=== PATIENT | female | born 1930 | race Caucasian/White ===

== ENCOUNTER 2018-06-07 18:09 | Inpatient (IN) | payer MEDICARE, BC ==
[~2018-06-07] VITALS: Ht 162.6 cm; Wt 59.0 kg
--- NOTE | ~2018-06-07 | PN ---
PATIENT:HYACINTH GUNDERSON MEDICAL RECORD: [id number] LOCATION:RohanOctaviaMADELINE August ADMISSION DATE: 06/07/18 PROGRESS NOTE DATE OF SERVICE: 06/10/2018 SUBJECTIVE: Ms. Gunderson is an 87-year-old female, who had been living with her son, but she had been frequently leaving the house, going down the street and when tried to redirect back to the house, the patient became physically agitated with her son and this time she was found by the police. On interview, the patient seems to be nervous and guarded. She certainly does not recognize me from yesterday at all. She thought she was in a [facility] and her only comments were that she needed to go home. OBJECTIVE: LATEST VITAL SIGNS: 98.4, 83, 18, 118/52, and 94%. ASSESSMENT: Unchanged. PLAN: The patient recently admitted. Social work will be talking to son about placement options, which [facility] care seems likely at this point considering the patient's wandering. We will continue to monitor for any side effects, risks, and benefits of recently started meds of BuSpar and Namenda. Case discussed with nursing, chart review and patient interview. TRANSINT:[id number] Voice Confirmation ID: [id number] DOCUMENT ID: [id number] RADHA RODRIGUES MD CC: [id number] DICTATION DATE: 06/10/18 1053 RECYCLING PROGRAM MANAGER: 06/10/18 1144 ADM IN [facility] [address] [place] [address]
--- NOTE | ~2018-06-07 | PN ---
PATIENT:HYACINTH GUNDERSON MEDICAL RECORD: [id number] LOCATION:MARIAJOSE Fern112 ADMISSION DATE: 06/07/18 PROGRESS NOTE DATE OF SERVICE: 06/12/2018 HISTORY OF PRESENT ILLNESS: Ms. Gunderson is an 87-year-old female who up until fairly recently by report was living by herself, but because of increasing confusion went to live with son. While there, had been wandering from her son's home and when redirected back to her son's home, she became agitated, aggressive and found by the police. She, after seeing a couple of patients last night, getting more agitated. The patient believed that a fellow patient had come here to have lunch with her and when this patient was not being allowed to leave, felt it was quite rude that her guest was not allowed to leave. Today on the interview, as per her baseline, she believes that she is ready to go and ready to go back home. Still believes she lives at home alone. She slept 8 hours last night, ate 100%, zero, and 75%. Her last bowel movement was on the 8th. Discussion with social services, the patient's son is looking at a list of group home facilities in order to place his mother as he is unable to provide the supervision as needed for this patient. OBJECTIVE: VITAL SIGNS: Temperature 98.8, heart rate 88, respiratory rate 18, blood pressure 131/68, and oxygen saturation 96%. ASSESSMENT: Unchanged. PLAN: Continue to work with family and placement. The patient seems to be responding well to current medications for the most part. We will continue the Namenda titration weekly as recommended. Case discussed with nursing. Chart was reviewed and the patient interviewed. TRANSINT:[id number] Voice Confirmation ID: [id number] DOCUMENT ID: [id number] RADHA RODRIGUES MD CC: [id number] DICTATION DATE: 06/12/18 1211 EMPLOYMENT DIRECTOR: 06/12/18 1232 ADM IN [place] [id number] [place] [id number]
[2018-06-07] MEDS ORDERED: CIPRO250 MG PO (19:21)
[2018-06-07] MEDS ORDERED: BUSPAR 15 MG TA15 MG PO (19:22)
[2018-06-07] MEDS ORDERED: VALTREX500 MG PO (19:22)
[2018-06-07] MEDS ORDERED: VITAMIN D31000 UNI2 PO (19:23)
[2018-06-07] MEDS ORDERED: CELEXA20 MG PO (19:23)
[2018-06-07] MEDS ORDERED: COENZYME Q1030 MG (19:24)
[2018-06-07] MEDS ORDERED: OMEGA-3100 MG PO (19:25)
[2018-06-07] MEDS ORDERED: CARDIZEM120 MG PO (19:25)
[2018-06-07] MEDS ORDERED: ASPIRIN325 MG PO (19:26)
[2018-06-07 20:22] VITALS: BP 160/74
[2018-06-07 23:46] VITALS: BP 160/74; BMI 23.8
--- NOTE | 2018-06-07 23:57 | NUR ---
PATIENT ARRIVED AT 19:10 VIA AMBULANCE, FAMILY ARRIVED AT 19:15, CALM AND COOPERATIVE, VS T 98.0, B/P 160/74, P 70, R 18, O2 98%, CODE STATUS IS DNR, CODE WORD IS TAYA, PATIENT ARRIVED FROM [facility] ER, PATIENT HAD WANDERED FROM HER ADULT SON'S HOME AND WAS FOUND BY POLICE, PATIENT HAD BEEN HALLUCINATING AND HAD BEEN DELUSIONAL AT TIMES, PATIENT CURRENTLY HAS A UTI BEING TREATED WITH CIPRO, SON SATHYA BUCKNER IS POA PHONE [phone], WILL CONTINUE TO MONITOR.
--- NOTE | 2018-06-08 00:22 | NUR ---
ATIVAN 0.5 MG PO GIVEN AT 00:16 FOR ANXIETY.
[2018-06-08 06:37] LABS: BASOPHILS 0.2 % (0-2); HEMATOCRIT 44.2 % (36.0-48.0); HEMOGLOBIN 14.5 g/dL (12-16); IMMATURE GRANULOCYTES 0.2 % (0-5); MCH 29.7 pg (26.0-34.0); MCHC 32.8 g/dL (31.0-37.0); MCV 90.4 fL (80.0-100.0); MEAN PLATELET VOLUME 10.2 fL (7.4-10.4); MONOCYTES 6.8 % (2-11); NEUTROPHILS 67.8 % (40-80); PLATELET COUNT 209 10x3/uL (130-400); RBC 4.89 10x6/uL (4.00-5.40); RDW 13.6 % (11.5-14.5); WBC 8.7 10x3/uL (4.8-10.8)
[2018-06-08 06:56] LABS: ALBUMIN 2.9 g/dL (3.4-5.0); ANION GAP 13.1 mmol/L (8-16); BILIRUBIN - TOTAL 0.44 mg/dL (0.2-1.3); CALCIUM 8.8 mg/dL (8.5-10.1); CARBON DIOXIDE 26.9 mmol/L (21.0-32.0); CHOL - HDL RATIO 5.1 ratio (2.3-4.1); CREATININE - SERUM 0.8 mg/dL (0.6-1.3); LDL-HDL RATIO 3.5 ratio (1.5-3.5); PROTEIN - SERUM 7.4 g/dL (6.4-8.2); THYROID STIMULATING HORMONE 4.44 uIU/mL (0.36-3.74)
[2018-06-08 08:12] VITALS: BP 118/65
[2018-06-08 08:45] VITALS: BMI 23.8
--- NOTE | 2018-06-08 11:44 | NUR ---
B) The patient is awake, she is oriented to herself only. She is pleasant, but keeps asking the same question over and over. She ambulates independently. I) Provide prescribed meds. R) The patient is compliant with meds and she will redirect easily. P) Continue POC.
[2018-06-08 20:47] VITALS: BP 131/89
--- NOTE | 2018-06-09 05:18 | NUR ---
B) patient is alert and oriented to person, very confused, patient is no sure of where she is or why she is her, I) Administered scheduled medications as ordered, monitored for safety, reoriented as needed R) Mediation compliant, P) Continue plan of care.
[2018-06-09 06:16] LABS: VITAMIN D 25 HYDROXY 52.5 ng/mL (30.0-100.0)
[2018-06-09 08:14] VITALS: BP 132/93
[2018-06-09 08:23] LABS: RAPID PLASMA REAGIN Non Reactive (Non Reactive)
[2018-06-09 10:21] LABS: FOLATE (FOLIC ACID) - SERUM >20.0 ng/mL (>3.0)
--- NOTE | 2018-06-09 11:32 | PSY ---
PATIENT NAME:HYACINTH BUCKNER MEDICAL RECORD: [id number] : 32 LOCATION:MARIAJOSE Koch7 ADMISSION DATE: 06/07/18 ACCOUNT: [id number] PSYCHIATRIC EVALUATION DATE OF EVALUATION: 06/08/18 IDENTIFYING DATA: The patient is 85 years old and she is admitted to the hospital on a voluntary basis. CHIEF COMPLAINT: Confusion. HISTORY OF PRESENT ILLNESS: The patient apparently got out of her house and was wandering in the road yesterday. She does not have any recollection for having done this. She does not really know where she is and has no particular concerns about being here. Apparently, she has been living with her son and that is because she has an established diagnosis of dementia and it seems to be getting worse. She was agitated when she was brought home after found wandering in the road that her son had to call the police and he needed their assistance to get her to the hospital. Apparently, over the past 5 weeks, the patient has had increased agitation and confusion. She is continuing to get out of the house and wander away from home and son has been unable to properly supervise care for her. PAST MEDICAL HISTORY: Significant for corneal transplant, hysterectomy, and coronary bypass surgery. PAST PSYCHIATRIC HISTORY: Significant for an established diagnosis of dementia that was made in 2018, although the family reports a 5-year history of decline in functioning prior to that, which probably means she started showing symptoms that would have been detectable on testing 10 years ago easily. The past psychiatric history is also significant for some depression, although I do not have details about this. FAMILY HISTORY: Noncontributory. ALLERGIES: PENICILLIN, SULFA, MORPHINE, AND CODEINE. CURRENT MEDICATIONS: Include Cipro, BuSpar, Valtrex, Celexa, vitamin D, coenzyme Q10, omega 3 fatty acids, Cardizem, and aspirin. SOCIAL HISTORY: The patient is . She has 2 children, one of whom has . The other son she is living with. She now does not recognize him as her son and thinks that is her much of the time. She has come into the bedroom where he is sleeping with his and then she thinks that is her and she is very angry and accusing her , who really is her son, of having an affair. Through her adult life, she functioned well socially and occupationally. She had no history of drug or alcohol abuse and no legal entanglements. MENTAL STATUS EXAMINATION: The patient is awake, alert, and oriented to person and place only. Her mood is euthymic. Her affect is appropriate. Thought processes are goal directed. Memory, concentration, and abstraction abilities are mildly impaired. She denies any active intent to harm herself or others as well as any overt psychotic symptoms. ASSETS: Supportive family members. LIABILITIES: Limited insight. DIAGNOSTIC IMPRESSION: AXIS I: Senile dementia of the Alzheimer's type with behavioral disturbances. AXIS II: None. AXIS III: Osteoporosis, coronary artery disease, and hyperlipidemia. AXIS IV: Moderate stressors. AXIS V: Global assessment of functioning is 30. PLAN: At this time, the patient will be admitted to the hospital for comprehensive medical, psychological, and social evaluation. She will be treated with both mood stabilizing and memory enhancing medications as deemed appropriate. It seems fairly clear that this is a reasonably or fairly advanced dementia and that she is going to need 24-hour supervision. What is not clear at this point is which environment will be the least restrictive that will be affordable and meet these needs. TRANSINT:[id number] Voice Confirmation ID: [id number] DOCUMENT ID: [id number] MATTHEW IZQUIERDO MD at 1132 CC: [id number] DICTATION DATE: 06/08/18 1604 MANAGER SUPPLY CHAIN PLANNING: 06/08/18 1706 ADM IN [place] [id number] [place] [address]
[2018-06-09 12:01] VITALS: Ht 162.6 cm; Wt 59.0 kg
[2018-06-09 20:00] VITALS: BP 131/80
--- NOTE | 2018-06-09 22:11 | NUR ---
B) Patient is alert and oriented to self, very confused and very demanding I) Administered schedulked mediations as ordered, monitored for safety R) Mediation compliant, resting quietly in bed, P) Continue plan of care.
--- NOTE | 2018-06-10 07:30 | NUR ---
REC'D PT IN HALLWAY WITH PEERS. ALERT WITH CONFUSION NOTED. PT IS CALM AND COOPERATIVE WITH ASSESSMENT. REDIRECT AND REORIENT NEEDED. PRESCRIBED MEDS PROVIDED. MED COMPLIANT. FALL PRECAUTIONS IN PLACE. WILL CONTINUE TO MONITOR Q 15 MINUTES FOR SAFETY. WILL CPOC.
[2018-06-10 08:26] VITALS: BP 118/52
--- NOTE | 2018-06-10 21:31 | NUR ---
PATIENT IS LABILE, HAS TO BE REDIRECTED A LOT, ARGUMENTATIVE AT TIMES, COMPLIANT WITH MEDS. WILL FOLLOW POC
--- NOTE | 2018-06-11 07:16 | NUR ---
REC'D PT RESTING IN BED WITH EYES CLOSED. RESPONDS TO VERBAL STIMULI. ALERT TO PERSON ONLY. PT IS VERY CONFUSED. REDIRECT AND REORIENT NEEDED. PRESCRIBED MEDS PROVIDED. MED COMPLIANT. FALL PRECAUTIONS IN PLACE. WILL CONTINUE TO MONITOR Q 15 MINUTES FOR SAFETY. WILL CPOC.
[2018-06-11 07:59] VITALS: BP 123/73
--- NOTE | 2018-06-11 08:17 | NUR ---
pt very agitated with staff. pt is very confused. pt thinks another pt is a friend that walked to her home to eat with her and insist we let them out the door. upon redirection pt becomes more anxious and agitated with staff. prn ativan 0.5mg given per orders. will continue to monitor q 15 minutes for safety.
--- NOTE | 2018-06-11 09:15 | NUR ---
prn med effective. pt resting calmly in reclining chair. no anxiety or aggression noted at this time. Will continue to monitor q 15 minutes for safety.
[2018-06-11 22:25] VITALS: BP 127/54
--- NOTE | 2018-06-12 07:30 | NUR ---
REC'D PT IN HALLWAY WITH PEERS. AWAKE AND ALERT WITH CONFUSION. CALM AND COOPERATIVE WITH ASSESSMENT. REDIRECT AND REORIENT NEEDED. PRESCRIBED MEDS PROVIDED. MED COMPLIANT. FALL PRECAUTIONS IN PLACE. NO AGGRESSION AT THIS TIME. WILL CONTINUE TO MONITOR Q 15 MINUTES FOR SAFETY. WILL CPOC.
[2018-06-12 08:00] VITALS: BP 131/68
[2018-06-12 21:06] VITALS: BP 111/48
--- NOTE | 2018-06-13 01:30 | NUR ---
RECEIVED IN PATIENT ROOM. RESTING IN BED WITH EYES OPEN. CALM AND COOPERATIVE WITH CARE AND ASSESSMENT. NO SIGNS OF HALUCINATION. NO DELUSIONAL SATEMENTS MADE. REDIRECT AND REORIENT NEEDED. RESTING IN BED WITH EYES CLOSED AT THIS TIME. CONTINUE PLAN OF CARE.
--- NOTE | 2018-06-13 07:30 | NUR ---
REC'D PT IN HALLWAY SITTING IN CHAIR WITH PEERS. AWAKE AND ALERT WITH CONFUSION NOTED. CALM AND COOPERATIVE WITH ASSESSMENT. NO AGGRESSION NOTED. REDIRECT ANF REORIENT NEEDED. PRESCRIBED MEDS PROVIDED. MED COMPLIANT. FALL PRECAUTIONS IN PLACE. WILL CONTINUE TO MONITOR Q 15 MINUTES FOR SAFETY. WILL CONTINUE PLAN OF CARE.
[2018-06-13 08:00] VITALS: BP 146/73
[2018-06-13 17:54] LABS: APPEARANCE CLEAR (CLEAR); BILIRUBIN NEGATIVE (NEGATIVE); COLOR YELLOW (YELLOW); GLUCOSE NEGATIVE (NEGATIVE); KETONE NEGATIVE (NEGATIVE); NITRITE NEGATIVE (NEGATIVE); PROTEIN NEGATIVE (NEGATIVE); SPECIFIC GRAVITY 1.015 (1.005-1.020); UROBILINOGEN NORMAL (NORMAL)
[2018-06-13 17:56] LABS: BACTERIA FEW /hpf (NONE SEEN); EPITHELIAL CELLS 0-5 /hpf (0-5); RED CELLS - URINE 0-5 /hpf (0-5); WHITE CELLS - URINE 0-5 /hpf (0-5)
[2018-06-13 20:00] VITALS: BP 145/64
--- NOTE | 2018-06-13 22:21 | NUR ---
RECIEVED IN PATIENT ROOM. RESTING IN BED WITH EYES CLOSED. RESPONDS TO VOICE. CALM AND COOPERATIVE WITH CARE AND ASSESSMENT. NO DELUSIONAL STATEMENTS MADE. VERY CONFUSED. REDIRECT AND REORIENT NEEDED. RESTING IN BED WITH EYES CLOSED AT THIS TIME. CONTINUE PLAN OF CARE.
[2018-06-14 08:23] VITALS: BP 147/87
--- NOTE | 2018-06-14 10:00 | NUR ---
RECEIVED PATIENT IN DINING ROOM FOR B'FAST, ALERT, CALM, COOPERATIVE. MEDS ADMIN PER ORDERS WITH COMPLETE MED COMPLIANCE NOTED. COOPERATIVE WITH GROUP AND STAFF REQUESTS. CONT POC INCLUDING MEDS AND GROUP THERAPY DIRECTED.
--- NOTE | 2018-06-14 10:59 | NUR ---
Nutrition Follow Up: Chart reviewed. Pt is eating 75% meal avg on a regular diet. +BM 06/09/18 - no BM x 5 days. Meds and labs reviewed. Pt continues at low nutritional risk. RD following.
--- NOTE | 2018-06-14 20:47 | NUR ---
RECEIVED IN PATIENT ROOM. RESTING IN BED WITH EYES OPEN. CALM AND COOPERATIVE WITH CARE AND ASSESSMENT. NO DELUSIONAL STATEMENTS MADE. NO SIGNS OF HALLUCINATIONS. REDIRECT AND REORIENT NEEDED. RESTING IN BED WITH EYES CLOSED AT THIS TIME. CONTINUE PLAN OF CARE.
[2018-06-15 00:47] VITALS: BP 130/43
[2018-06-15 07:57] VITALS: BP 152/71
--- NOTE | 2018-06-15 14:49 | NUR ---
IS CONFUSED AND DISORIENTED.VERY POOR SHORT TERM MEMORY.OFTEN VOICES "THE DOCTOR TOLD ME I CAN GO HOME",AND WANTS TO USE THE PHONE TO CALL SOMEONE TO COME PICK HER UP.DIFFICULT TO REDIRECT AT TIMES.IS COMPLIANT WITH MEDS AND MOST OF THE TIME WITH THE STAFF.WILL CONTINUE WITH PLAN OF CARE,MONITOR FOR CHANGES AND SAFETY.
--- NOTE | 2018-06-15 15:50 | PN ---
PATIENT:HYACINTH BUCKNER MEDICAL RECORD: [id number] LOCATION:EMILYReji August ADMISSION DATE: 06/07/18 PROGRESS NOTE DATE OF SERVICE: 06/14/2018 SUBJECTIVE: The patient's case was discussed with staff. She has no new complaint. OBJECTIVE: The patient denies intent to harm herself or others. She is tolerating her medicines well. Eye contact is fair. ASSESSMENT: No change in diagnoses. PLAN: The patient has severe cognitive impairment, but is showing improvement. She clearly is going to require 19-kxwg-s-day supervision. What is not clear is what setting is the least restrictive. TRANSINT:[id number] Voice Confirmation ID: [id number] DOCUMENT ID: [id number] MATTHEW IZQUIERDO MD at 1550 CC: [id number] DICTATION DATE: 06/14/18 1644 LAND SURVEYOR: 06/14/18 1750 ADM IN [place] [id number] [place] [id number]
--- NOTE | 2018-06-15 15:50 | PN ---
PATIENT:HYACINTH BUCKNER MEDICAL RECORD: [id number] LOCATION:RohanSHANIReji August ADMISSION DATE: 06/07/18 PROGRESS NOTE DATE OF SERVICE: 06/13/2018 SUBJECTIVE: The patient's case was discussed with staff. She has no new complaint. OBJECTIVE: The patient denies intent to harm herself or others. She is generally tolerating her medicines well. ASSESSMENT: No change in diagnoses. PLAN: The patient's BuSpar is going to be discontinued secondary to lack of a strong clinical indication. Her long-term prognosis is guarded. TRANSINT:[id number] Voice Confirmation ID: [id number] DOCUMENT ID: [id number] MATTHEW IZQUIERDO MD at 1550 CC: [id number] DICTATION DATE: 06/13/18 1639 BOOKING CLERK: 06/13/18 1654 ADM IN [place] [id number] [place] [address]
--- NOTE | 2018-06-15 15:50 | PN ---
PATIENT:HYACINTH BUCKNER MEDICAL RECORD: [id number] LOCATION:EMILYReji August ADMISSION DATE: 06/07/18 PROGRESS NOTE DATE OF SERVICE: 06/09/2018 SUBJECTIVE: The patient's case was discussed with staff. She has no new complaint. OBJECTIVE: The patient is in good behavioral control. She is pleasantly confused, but certainly not agitated or even asking to leave. It is unclear what the least restrictive environment is going to be. It seems her son is not going to be able to care for her and I am anticipating she is probably going to have to go to a senior living. I think that is going to be the least restrictive environment. ASSESSMENT: No change in diagnoses. PLAN: Current medicines have been reviewed. Supportive and educational interventions were made. TRANSINT:[id number] Voice Confirmation ID: [id number] DOCUMENT ID: [id number] MATTHEW IZQUIERDO MD at 1550 CC: [id number] DICTATION DATE: 06/09/18 1102 ASSISTANT PLANT CONTROLLER: 06/09/18 1216 ADM IN [place] [id number] [place] [address]
--- NOTE | 2018-06-15 20:16 | NUR ---
RECEIVED IN DAYROOM. WANDERING AND EXIT SEEKING. FELICIANOSTANLEY SHE IS BEING DISCHARGED TONIGHT. CALM AND COOPERATIVE WITH CARE AND ASSESSMENT. REDIRECT AND REORIENT NEEDED. GETTING READY FOR BED AT THIS TIME. CONTINUE PLAN OF CARE.
[2018-06-15 21:52] VITALS: BP 137/83
[2018-06-16 08:14] VITALS: BP 115/62
--- NOTE | 2018-06-16 13:53 | PN ---
PATIENT:HYACINTH BUCKNER MEDICAL RECORD: [id number] LOCATION:MARIAJOSE ShirleyOctavio ADMISSION DATE: 06/07/18 PROGRESS NOTE DATE OF SERVICE: 06/15/2018 SUBJECTIVE: The patient's case was discussed with staff. She has no new complaint. OBJECTIVE: The patient is pleasant, but clearly very confused. She is tolerating her medicines reasonably well. She has poor insight about her situation. ASSESSMENT: No change in diagnoses. PLAN: The patient will have her Namenda increased to 5 mg twice daily. TRANSINT:[id number] Voice Confirmation ID: [id number] DOCUMENT ID: [id number] MATTHEW IZQUIERDO MD at 1353 CC: [id number] DICTATION DATE: 06/15/18 171 INSURANCE SALESMAN: 06/15/18 2247 ADM IN [address] [address]
--- NOTE | 2018-06-16 16:31 | NUR ---
VERY CONFUSED AND DISORIENTED.COMPLIANT WITH STAFF AND MEDS.VERY POOR SHORT TERM MEMORY.CONTINUES TO SAY THE DOCTOR TOLD HER SHE CAN GO HOME.WILL CONTINUE WITH PLAN OF CARE,MONITOR FOR SAFETY AND CHANGES.
[2018-06-16 20:00] VITALS: BP 161/66
--- NOTE | 2018-06-17 01:06 | NUR ---
PATIENT IS VERY CONFUSED AND HAS TO BE REDIRECTED WITH DIRECTIONS TO ROOM. COMPLIANT WITH MEDS, NO ADVERSE REACTION NOTED. WILL FOLLOW POC
[2018-06-17 08:27] VITALS: BP 149/68
--- NOTE | 2018-06-17 10:00 | NUR ---
RECEIVED PATIENT IN DINING ROOM FOR B'FAST, ALERT, RESTLESS, INTRUSIVE, ENJOYS REPORTING OTHER PATIENTS' BUSINESS. MEDS ADMIN PER ORDERS WITH COMPLETE MED COMPLIANCE NOTED. TAKES MEDS WHOLE WITHOUT DIFFICULTY. NO S/S ADVERSE REACTION NOTED. COOPERATIVE WITH GROUP AND STAFF REQUESTS. CONT POC INCLUDING MEDS AND GROUP THERAPY.
--- NOTE | 2018-06-17 12:17 | PN ---
PATIENT:HYACINTH BUCKNER MEDICAL RECORD: [id number] LOCATION:MARIAJOSE Koch ADMISSION DATE: 06/07/18 PROGRESS NOTE DATE OF SERVICE: 06/16/2018 SUBJECTIVE: The patient's case was discussed with staff. She has no new complaint. OBJECTIVE: The patient is confused and oriented to person only. Her mood is flat. Her affect is constricted. Thought processes are circumstantial. Memory, concentration, and abstraction abilities are moderately impaired. She denies any active intent to harm herself or others. She is going to be placed in a senior living since her son feels he can no longer handle her. TRANSINT:[id number] Voice Confirmation ID: [id number] DOCUMENT ID: [id number] MATTHEW IZQUIERDO MD at 1217 CC: [id number] DICTATION DATE: 06/16/18 1605 LEARNING AND DEVELOPMENT ANALYST: 06/16/18 2320 ADM IN [place] [id number] [place] [address]
--- NOTE | 2018-06-17 15:49 | NUR ---
TYLENOL 500 MG ADMIN PO FOR NECK/HEAD ACHE. PASCALE WELL.
--- NOTE | 2018-06-17 21:00 | NUR ---
PATIENT IS AWAKE AND ALERT, ABLE TO ASK FOR ALL NEEDS BUT IS EXTREMELY CONFUSED. COMPLIANT WITH MEDS. WILL FOLLOW POC
[2018-06-18 01:57] VITALS: BP 148/67
--- NOTE | 2018-06-18 10:00 | NUR ---
RECEIVED PATIENT IN DINING ROOM FOR B'FAST, ALERT, QUITE CONFUSED, REQUESTING TO GO HOME TO LIVE. MEDS ADMIN PER ORDERS WITH COMPLETE MED COMPLIANCE NOTED. HOWEVER, PATIENT FORGETS THAT SHE HAS TAKEN HER MEDS AND REQUESTS THEM AGAIN. COOPERATIVE WITH STAFF AND GROUP ACTIVITY. CONT POC INCLUDING MEDS AND GROUP THERAPY DIRECTED.
[2018-06-18 10:03] VITALS: BP 129/90
--- NOTE | 2018-06-18 11:49 | PN ---
PATIENT:HYACINTH BUCKNER MEDICAL RECORD: [id number] LOCATION:MARIAJOSE Koch ADMISSION DATE: 06/07/18 PROGRESS NOTE DATE OF SERVICE: 06/17/2018 SUBJECTIVE: The patient's case was discussed with staff. She has no new complaint. OBJECTIVE: The patient denies intent to harm herself or others. She has been tolerating her medicines reasonably well. She has very limited insight about her situation. ASSESSMENT: No change in diagnoses. PLAN: The patient clearly needs 61-zahg-e-day supervision. Long-term prognosis is guarded. TRANSINT:[id number] Voice Confirmation ID: [id number] DOCUMENT ID: [id number] MATTHEW IZQUIERDO MD at 1149 CC: [id number] DICTATION DATE: 06/17/18 1415 GLUE JOINTER FEEDER: 06/17/18 1447 ADM IN [place] [address] [place] [address]
--- NOTE | 2018-06-18 16:14 | NUR ---
FAMILY HERE TO VISIT.
--- NOTE | 2018-06-18 18:06 | NUR ---
PATIENT CONTINUES TO BE QUITE DEMANDING BUT PLEASANT. INTRUSIVE AT TIMES WITH OTHER PATIENTS.
[2018-06-18 22:53] VITALS: BP 160/62
--- NOTE | 2018-06-19 07:30 | NUR ---
PT IS CALM AND COOPERATIVE WITH ASSESSMENT. PT IS ALERT AND RESTLESS. PRESCRIBED MEDS PROVIDED. MED COMPLIANT. WILL CONTINUE TO MONITOR Q 15 MINUTES FOR SAFETY. WILL CPOC.
[2018-06-19 08:00] VITALS: BP 174/93
--- NOTE | 2018-06-19 15:24 | NUR ---
DANIELLA SPOKE WITH PT'S SON, ELIO, TO DISCUSS DISCHARGE PLANNING AND ALERT OF POSSIBLE DISCHARGE FOR TUESDAY SO HE CAN COMPLETE PPW FOR GROUP HOME PLACEMENT. ELIO VERBALIZED UNDERSTANDING OF DISCUSSION.
--- NOTE | 2018-06-19 15:29 | PN ---
PATIENT:HYACINTH BUCKNER MEDICAL RECORD: [id number] LOCATION:MARIAJOSE Koch ADMISSION DATE: 06/07/18 PROGRESS NOTE DATE OF SERVICE: 06/18/2018 SUBJECTIVE: The patient's case was discussed with staff. She has no new complaint. OBJECTIVE: The patient denies intent to harm herself or others. She generally tolerates her medicines well. She is eating marginally adequately, but she is certainly sleeping well. She has not had any hallucinations or delusions today. ASSESSMENT: No change in diagnoses. PLAN: The patient clearly is in need of 54-zjpf-y-day supervision. I will meet with the treatment team tomorrow and we will discuss the options. At this point, she is reasonably stable from behavioral and perceptual standpoint. I anticipate she can reasonably be transitioned out of the hospital once living arrangements are made. TRANSINT:[id number] Voice Confirmation ID: [id number] DOCUMENT ID: [id number] MATTHEW IZQUIERDO MD at 1529 CC: [id number] DICTATION DATE: 06/18/18 1201 MODELER: 06/18/18 1225 ADM IN [facility] [address] [place] [address]
[2018-06-19 20:03] VITALS: BP 160/63
--- NOTE | 2018-06-19 21:08 | NUR ---
PATIENT REMAINS CONFUSED, HAS TO ALWAYS BE REDIRECTED, COMPLIANT WITH MEDS, NO ADVERSE REACTION NOTED. WILL FOLLOW POC
--- NOTE | 2018-06-20 07:30 | NUR ---
pt rec'd in hallway with peers. alert to self. calm and cooperative with assessment. redirect and reorient as needed. prescribed meds provided. med compliant. fall precautions in place. will continue to monitor q 15 minutes for safety. will cpoc.
[2018-06-20 08:00] VITALS: BP 159/70
--- NOTE | 2018-06-20 10:08 | NUR ---
Nutrition Follow Up: Chart reviewed. Pt is eating 72% meal avg on a regular diet. +BM 06/18/18. Meds and labs reviewed. Pt continues at low nutritional risk. RD following.
--- NOTE | 2018-06-20 12:02 | PN ---
PATIENT:HYACINTH BUCKNER MEDICAL RECORD: [id number] LOCATION:MARIAJOSE RohanOctaviaOctavio ADMISSION DATE: 06/07/18 PROGRESS NOTE DATE OF SERVICE: 06/19/2018 SUBJECTIVE: The patient's case was discussed with staff. She has no new complaint. OBJECTIVE: The patient denies intent to harm herself or others. She generally tolerates her medicines well. Eye contact is fair. ASSESSMENT: No change in diagnoses. PLAN: Current medicines have been reviewed and will be maintained. Long-term prognosis is guarded. TRANSINT:[id number] Voice Confirmation ID: [id number] DOCUMENT ID: [id number] MATTHEW IZQUIERDO MD at 1202 CC: [id number] DICTATION DATE: 06/19/18 1618 IRRIGATION SPECIALIST: 06/19/18 2208 ADM IN [place] [address] [place] [address]
[2018-06-20] MEDS ORDERED: NAMENDA5 MG PO (13:21)
--- NOTE | 2018-06-20 22:57 | NUR ---
RECEIVED IN DAYROOM. SITTING IN CHAIR WITH PEERS AT SIDE. VERY CONFUSED. CALM AND COOPERATIVE WITH CARE AND ASSESSMENT. NO SIGNS OF HALLUCINATIONS OR DELUSIONS. REDIRECT AND REORIENT NEEDED. RESTING IN BED WITH EYES CLOSED AT THIS TIME. CONTINUE PLAN OF CARE.
[2018-06-20 23:36] VITALS: BP 142/70
--- NOTE | 2018-06-21 07:30 | NUR ---
REC'D PT IN HALLWAY WITH PEERS. CALM AND COOPERATIVE WITH ASSESSMENT. PRESCRIBED MEDS PROVIDED. MED COMPLIANT. NO BEHAVIORS NOTED. FALL PRECAUTIONS IN PLACE. WILL CONTINUE TO MONITOR Q 15 MINUTES FOR SAFETY. WILL CPOC.
[2018-06-21 07:50] VITALS: BP 134/68
--- NOTE | 2018-06-21 10:00 | NUR ---
THIS NURSE CALLED REPORT TO [facility]. REPORT GIVEN TO ALMA MALHOTRA. ALL PAPERWORK FAXED AND COPY WILL BE SENT WITH PT.
--- NOTE | 2018-06-21 10:30 | NUR ---
PT DISCHARGED TO [facility]. PT LEFT FACILITY WITH SON ELIO AND DAUGHTER IN LAW. COUNTER TOP ASSEMBLER AND I WENT OVER ALL DC PLANNING WITH FAMILY. ALL PAPERWORK SENT WITH PT. PT LEFT IN STABLE CONDITION. NO S/SX OF DISTRESS NOTED.
--- NOTE | 2018-06-21 15:37 | PN ---
PATIENT:HYACINTH BUCKNER MEDICAL RECORD: [id number] LOCATION:[facility] ADMISSION DATE: 06/07/18 PROGRESS NOTE DATE OF SERVICE: 06/20/2018 SUBJECTIVE: The patient's case was discussed with staff. She has no new complaint. OBJECTIVE: The patient denies intent to harm herself or others. She generally tolerates her medicines well. ASSESSMENT: No change in diagnoses. PLAN: Brief supportive and educational interventions were made. Long-term prognosis is guarded. TRANSINT:[id number] Voice Confirmation ID: [id number] DOCUMENT ID: [id number] MATTHEW IZQUIERDO MD at 1537 CC: [id number] DICTATION DATE: 06/20/18 1322 INSOLE ROUNDER: 06/20/18 1417 DIS IN 06/21/18 [id number] [place] [address]
--- NOTE | 2018-06-25 12:21 | DS ---
PATIENT:HYACINTH BUCKNER :32 MEDICAL RECORD: [id number] DISCHARGE SUMMARY ADMISSION DATE: 06/07/18 DISCHARGE DATE: 06/21/18 IDENTIFYING DATA: The patient is 87 years old and she was admitted to the hospital on a voluntary basis because of confusion. The patient apparently was at home and wandering in the road. She had very few recollections about how she had gotten to the hospital, but apparently she has been living with her son and has an established diagnosis of dementia, which has gotten worse acutely. She has been agitated and was brought here after found wandering and became combative when she could not be returned to the house. HOSPITAL COURSE: The patient was admitted to the hospital and fully evaluated from both a medical, psychological, and social standpoint. She was treated with both mood stabilizing and memory enhancing medications and showed improvement through the course of the hospitalization. It was established that the least restrictive environment would be a halfway and she was subsequently transitioned there. DISCHARGE DIAGNOSES: AXIS I: Senile dementia of the Alzheimer's type with behavioral disturbances. AXIS II: None. AXIS III: Osteoporosis, coronary artery disease, and hyperlipidemia. AXIS IV: Moderate stressors. AXIS V: Global Assessment Of Functioning is 35. PLAN: At the time of discharge, the patient was not acutely dangerous to herself or others. She was tolerating her medicines well. Followup is to be with her primary care halfway physician. TRANSINT:[id number] Voice Confirmation ID: [id number] DOCUMENT ID: [id number] MATTHEW IZQUIERDO MD at 1221 CC: [id number] DICTATION DATE: 06/24/18 1301 JAVASCRIPT APPLICATION DEVELOPER: 06/25/18 0018 DIS IN 06/21/18 [facility] [address] [id number]
== END 2018-06-21 10:30 | DRG 57 ==
LOC: D.PSYCH 18:09
PROVIDERS: ADMIT Psychiatry & Neurology Psychiatry
DX: G30.1 Alzheimer's disease with late onset (principal); F02.81 Dementia in other diseases classified elsewhere, unspecified severity, with behavioral disturbance; M81.0 Age-related osteoporosis without current pathological fracture; E78.5 Hyperlipidemia, unspecified; I25.10 Atherosclerotic heart disease of native coronary artery without angina pectoris; K21.9 Gastro-esophageal reflux disease without esophagitis; F41.9 Anxiety disorder, unspecified; Z95.5 Presence of coronary angioplasty implant and graft; Z95.1 Presence of aortocoronary bypass graft

== ENCOUNTER 2019-01-19 16:46 | Inpatient (IN) | payer MEDICARE ==
[~2019-01-19] VITALS: Ht 160 cm; Wt 53.3 kg
[~2019-01-19 16:46] MED LIST: ASPIRIN325 MG PO; BUSPAR 15 MG TA15 MG PO; CARDIZEM120 MG PO; CELEXA20 MG PO; CIPRO250 MG PO; COENZYME Q1030 MG; NAMENDA5 MG PO; OMEGA-3100 MG PO; VALTREX500 MG PO; VITAMIN D31000 UNI2 PO
--- NOTE | 2019-01-19 22:24 | NUR ---
PATIENT ARRIVED ON PREVIOUS SHIFT FROM [facility] T[facility]ARD OTHER RESIDENTS AND STAFF. SHE IS EXTREMELY CONFUSED, ARGUMENTATIVE, DEMANDING AND HARD TO REDIRECT. VITAL SIGNS ARE STABLE. PATIENT ORIENTED TO ROOM AND UNIT. WILL MONITOR PATIENT THROUGHOUT SHIFT.
[2019-01-19 22:59] VITALS: BP 146/71
[2019-01-20 07:31] LABS: CHOL - HDL RATIO 6.4 ratio (2.3-4.1); LDL-HDL RATIO 4.7 ratio (1.5-3.5)
--- NOTE | 2019-01-20 08:13 | NUR ---
B) The patient is awake and alert, she is entitled and demanding. She is oriented to her name, but has poor insight into her situation. She has not shown physical aggression, but she gets a bit verbal and demanding as she requests to use the phone so that she can call her children so they can pick her up. The patient ambulates independently. I) Provide prescribed meds. R) The patient needs redirection and she is very forgetful. P) Continue POC.
[2019-01-20 10:25] VITALS: Ht 160 cm; Wt 53.3 kg
--- NOTE | 2019-01-20 14:48 | NUR ---
The patient has herself all upset saying she has to go and that she has a job she needs to go to and then she says she has to go see her Mother, but she says her Mother is 90. The patient is 88. She says "You just think I'm crazy but I am not and if there were more hospitals besides this one you'd have some competition." She rolls her eyes at any redirection and walks off in a brisk manner and speaks tersely to the staff. She will not listen to redirection or any reasoning.
[2019-01-20 15:47] LABS: BASOPHILS 0.2 % (0-2); HEMATOCRIT 44.7 % (36.0-48.0); HEMOGLOBIN 14.5 g/dL (12-16); IMMATURE GRANULOCYTES 0.2 % (0-5); LYMPHOCYTES 22.3 % (15-50); MCH 28.7 pg (26.0-34.0); MCHC 32.4 g/dL (31.0-37.0); MCV 88.5 fL (80.0-100.0); MEAN PLATELET VOLUME 10.1 fL (7.4-10.4); NEUTROPHILS 70.3 % (40-80); RBC 5.05 10x6/uL (4.00-5.40); RDW 16.1 % (11.5-14.5); WBC 10.5 10x3/uL (4.8-10.8)
--- NOTE | 2019-01-20 15:59 | NUR ---
PATIENT IS UPSET ASKING THE SAME QUESTIONS "I NEED TO THE USE THE PHONE TO CALL MY SON TO COME AND GET ME" NURSE EXPLAINED THAT PHONE TIMES ARE AT 5:30. PATIENT BECOMES UPSET AND WALKS OFF STATING "BURNETT WELL I NEED TO LEAVE AND I WILL REPORT THIS. I WAS SUPPOSE TO COME AND SEE MY DOCTOR AND LEAVE." PT HAS VERY POOR INSIGHT INTO SITUTION. VERY POOR SHORT TERM MEMORY. PT DOES NOT VERBALIZE UNDERSTANDING OF SITUTION.
[2019-01-20 16:11] LABS: PLATELET COUNT 297 10x3/uL (130-400)
[2019-01-20 17:14] LABS: ALBUMIN 3.4 g/dL (3.4-5.0); ALKALINE PHOSPHATASE 118 U/L (46-116); ALT (SGPT) 14 U/L (10-68); BILIRUBIN - TOTAL 0.29 mg/dL (0.2-1.3); CALC OSMOLALITY 288 mosm/kg (275-300); CALCIUM 8.9 mg/dL (8.5-10.1); CARBON DIOXIDE 29.4 mmol/L (21.0-32.0); CHLORIDE - SERUM 107 mmol/L (98-107); CREATININE - SERUM 0.7 mg/dL (0.6-1.3); GLUCOSE 91 mg/dL (74-106); POTASSIUM - SERUM 4.1 mmol/L (3.5-5.1); PROTEIN - SERUM 7.9 g/dL (6.4-8.2); SODIUM 144 mmol/L (136-145); THYROID STIMULATING HORMONE 2.03 uIU/mL (0.36-3.74); UREA NITROGEN 19 mg/dL (7-18); eGFR NON AFRICAN AMERICAN 84 mL/min (90-120)
--- NOTE | 2019-01-20 18:18 | NUR ---
ATIVAN [address] IZQUIERDO ORDER. PATIENT WAS VERY NERVOUS, PACING, EXIT-SEEKING. PT STATED "I WANT TO GO HOME. I WANT TO CALL MY SON AND TELL HIM TO COME GET ME." NURSE OFFERED PT TO CALL SON 2X. PT STATED ONLY IF HE CAN COME AND GET ME. NURSE ATTEMPTED TO EXPLAIN TO PT THAT ONLY THE DOCTOR CAN GIVE THE ORDER FOR A PT TO DISCHARGE. PT DID NOT VERBALIZE UNDERSTANDING. WILL REASSES Q 1 HOUR.
--- NOTE | 2019-01-20 18:35 | NUR ---
PATIENT ON THE PHONE WITH SON AT THIS TIME.
[2019-01-20 19:05] VITALS: BP 124/61
--- NOTE | 2019-01-20 19:22 | NUR ---
Spoke to the patient's son and he is concerned that his Mother was fine and he does not understand how she is here when she was doing so fine. He also says he is worried that his Mom may have herpes. She has had to take valtrex in past. He said "I'm the POA and if you need to medicate her to visualize any sores then I give permission to do so." Tried to calm him and empathize.
[2019-01-20 20:36] VITALS: BP 134/50
--- NOTE | 2019-01-20 22:36 | NUR ---
PATIENT IS VERY CONFUSED, VERY ARGUMENTATIVE, COMPLIANT WITH MEDS. HAS TO BE REMINDED OF WHY SHE IS HERE OVER AND OVER. WILL FOLLOW POC
[2019-01-21 07:57] LABS: APPEARANCE CLOUDY (CLEAR); BILIRUBIN NEGATIVE (NEGATIVE); COLOR YELLOW (YELLOW); GLUCOSE NEGATIVE (NEGATIVE); KETONE NEGATIVE (NEGATIVE); NITRITE POSITIVE (NEGATIVE); PROTEIN NEGATIVE (NEGATIVE); SPECIFIC GRAVITY 1.025 (1.005-1.020); UROBILINOGEN NORMAL (NORMAL)
[2019-01-21 07:58] LABS: BACTERIA MANY /hpf (NEGATIVE); EPITHELIAL CELLS 0-5 /hpf (0-5); WHITE CELLS - URINE >50 /hpf (NEGATIVE)
[2019-01-21 08:00] VITALS: BP 181/73
--- NOTE | 2019-01-21 09:00 | NUR ---
PT IS AWAKE AND ALERT TO PERSON ONLY. PT IS VERY CONFUSED AND DEMANDING. CALM AND COOPERATIVE WITH ASSESSMENT. REDIRECT AND REORIENT NEEDED. FALL PRECAUTIONS IN PLACE. MED COMPLIANT. WILL CPOC.
--- NOTE | 2019-01-21 14:11 | NUR ---
SPOKE WITH SON SATHYA ABOUT VISITATION THIS DAY AND PATIENT CODEWORD. HE WAS EXPLAINED THAT [facility] STILL HAS NOT CALLED HIM TO GIVE HIM ANY INFORMATION. HE ASKED ABOUT HER HAVING A UTI AND HERPES OUTBREAK. HER URINE RESULTS ARE BACK AND PATIENT HAS STARTED ON LEVAQUIN FOR UTI, MEDICATION FOR HERPES. CODEWORD: TAYA. EXPLAINED TO SON THAT SHE HAS BEEN EXIT SEEKING, ARGUMENATIVE, AND ANXIOUS. PT HAS BEEN TAKING MEDSM WITH MUCH ENCOURAGEMENT.
--- NOTE | 2019-01-21 20:18 | NUR ---
RECEIVED IN DAYROOM. SITTING IN A CHAIR WITH PEERS AT HER SIDE. CALM AND COOPERATIVE WITH CARE AND ASSESSMENT. NO SIGNS OF AGGRESSION. REDIRECT AND REORIENT NEEDED. CONTINUES TO SIT QUIETLY IN CALMLY IN CHAIR. CONTINUE PLAN OF CARE
[2019-01-21 22:48] VITALS: BP 130/46
[2019-01-22 08:00] VITALS: BP 138/63
--- NOTE | 2019-01-22 15:08 | NUR ---
PT IS AWAKE AND ALERT TO PERSON. CALM AND COOERATIVE WITH ASSESSMENT. PT IS VERY CONFUSED AND VERY DEMANDING. MED COMPLIANT. REDIRECT AND REORIENT NEEDED. FALL PRECAUTIONS IN PLACE. WILL CPOC.
[2019-01-22 20:23] VITALS: BP 151/64
--- NOTE | 2019-01-22 22:06 | NUR ---
RECEIVED IN DAYROOM. SITTING IN A CHAIR WITH PEERS AT HER SIDE. CALM AND COOPERATIVE WITH CARE AND ASSESSMENT. NO SIGNS OF AGGRESSION. REDIRECT AND REORIENT NEEDED. CONTINUES TO SIT CALMLY. CONTINUE PLAN OF CARE
[2019-01-23 08:00] VITALS: BP 110/65
--- NOTE | 2019-01-23 12:55 | NUR ---
PT IS AWAKE AND ALERT TO PERSON. PT IS VERY CONFUSED AND DEMANDING WITH STAFF. CALM AND COOPERATIVE WITH ASSESSMENT. REDIRECT AND REORIENT NEEDED. FALL PRECAUTIONS IN PLACE. WILL CPOC.
--- NOTE | 2019-01-23 15:32 | NUR ---
ATIVAN 0.5 MG PO GIVEN FOR BEING ANXIOUS, DEMANDING , AND ARGUMENTATIVE WITH STAFF.
[2019-01-23 20:10] VITALS: BP 132/49
--- NOTE | 2019-01-23 22:00 | NUR ---
RECEIVED IN DAYROOM. SITTING IN A CHAIR WITH PEERS AT HER SIDE. CALM AND COOPERATIVE WITH CARE AND ASSESSMENT. NO SIGNS OF AGGRESSION. REDIRECT AND REORIENT NEEDED. RESTING IN BED AT THIS TIME. CONTINUE PLAN OF CARE
--- NOTE | 2019-01-24 01:09 | NUR ---
REC'D SITTING IN DAYROOM. CONFUSED AND DISORIENTED. PATIENT THINKS SHE IS IN [place]. PREOCCUPIED WITH GOING HOME. PATIENT AAKS IF HER SON IS COMING TO GET HER OR TELLING STAFF TO CALL HER SON HE NEEDS TO PICK HER UP. NO INSIGHT INTO THE REASON FOR ADMISSION. LABILE. PATIENT WILL BECOME IRRITABLE AND ARGUMENTATIVE WITH STAFF WHEN NEEDS ARE NOT MET AT THE EXACT TIME SHE FEELS THEY SHOULD BE MET. CAN BE PLEASANT AT TIMES. ADMINISTER MEDS PER ORDERS Q SHIFT AND MONITOR COMPLIANCE. REORIENT NEEDED. MED COMPLIANT. POOR REORIENTATION DUE TO PT'S IMPAIRED ABILITY TO RETAIN INFORMATION. CONTINUE POC AND PROVIDE SAFE ENVIRONMENT,
[2019-01-24 09:11] VITALS: BP 135/99
--- NOTE | 2019-01-24 13:09 | NUR ---
PATIENT IS AWAKE AND ALERT TO PERSON ONLY. MEDICATION COMPLIANT. CALM AND COOPERATIVE WITH CARE AND ASSESSMENT. REDIRECT AND REORIENT NEEDED. NO AGGRESSIVE BEHAVIOR NOTED. FALL PRECAUTIONS IN PLACE. WILL CPOC.
[2019-01-24 20:55] VITALS: BP 149/47
--- NOTE | 2019-01-25 08:09 | NUR ---
B) The patient came to the nurses station and asked "When can my son come and pick me up?" Explained to her that she may leave when she is discharged. She did not get upset or demand to call or leave at this time. She ambulates independently. She has poor short term memory recall and poor insight into her situation. I) Provide prescribed meds. R) The patient is compliant with meds. P) Continue POC.
[2019-01-25 09:26] VITALS: BP 129/63
--- NOTE | 2019-01-25 12:35 | NUR ---
NUTRITION F/U PT WITH 100% INTAKE MEALS UNTIL RECENT. SLIGHT WT DECREASE. WILL CONTINUE TO PROVIDE DIET, MONITOR PO INTAKE AND WT. RD FOLLOWING
[2019-01-25 20:01] VITALS: BP 136/72
--- NOTE | 2019-01-25 23:16 | NUR ---
REC'D SITTING IN THE DAYROOM. POOR INTERACTION WITH PEERS. INTRUSSIVE WHILE STAFF IS TRYING TO PERFORM THEIR DUTIES FOR EXAMPLE NURSE WAS ADMINISTERING MEDS AND PATIENT REPEATEDLY INTERRUPTED HER WITH REQIEST TO GO TO BED AND THEN WOULD COMPLAIN THAT SHE WAS NOT BEING TREATED SHE SHOULD BE ORIENTED TO SELF ONLY. ADMINISTER MEDS Q SHIFT PER ORDERS AND MONITOR COMPLIANCE. REDIRECT FOR INTRUSSIVE BEHAVIOR. MED COMPLIANT. POOR REDIRECTION. PATIENT WILL SIT THERE AND VERBALIZING DEGRADING COMMENTS TO STAFF AND ABOUT THE FACILITY. CONTINUE POC AND PROVIDE SAFE ENVIRONMENT.
--- NOTE | 2019-01-26 07:52 | NUR ---
B) The patient is calm at this time, she has not mentioned once about calling her son and having to leave. She redirects easier, she has not been demanding this am. She ambulates independently. She is oriented to herself. She has poor insight into her situation. I) Provide prescribed meds. R) The patient is compliant with meds. P) Continue POC.
[2019-01-26 08:30] VITALS: BP 122/53
[2019-01-26 20:00] VITALS: BP 97/55
--- NOTE | 2019-01-27 00:25 | NUR ---
B.) PT IS ALERT AND ORIENTED TO SELF ONLY. SHE HAS POOR INSIGHT INTO HER SITUATION. SHE AMBULATES WITHOUT ASSISTANCE. SHE IS PLEASANT WITH STAFF. I.) REDIRECT OFTEN. PROVIDED PM MEDICATION. R.) PT REDIRECTS EASILY. COMPLIANT WITH ALL MEDICATIONS. P.) CONTINUE PLAN OF CARE
--- NOTE | 2019-01-27 07:49 | NUR ---
B) The patient is awake and she is pleasant, she is not speaking tersely or being demanding. She is calm and not showing any aggression this am. I) Provide prescribed meds. R) The patient is compliant with meds. P) Continue POC.
[2019-01-27 08:00] VITALS: BP 145/55
[2019-01-27 21:05] VITALS: BP 148/49
--- NOTE | 2019-01-27 22:25 | NUR ---
B.) PT IS ALERT AND ORIENTED TO SELF ONLY. SHE HAS POOR INSIGHT INTO HER SITUATION. SHE IS INTRUSIVE WITH PEERS. I.) PROVIDED PM MEDICATIONS. REDIRECT OFTEN. R.) COMPLIANT WITH ALL MEDICATIONS. PT REMAINS CONFUSED AND IS DIFFICULT TO REDIRECT. P.) CONTINUE PLAN OF CARE
[2019-01-28 08:00] VITALS: BP 119/63
--- NOTE | 2019-01-28 15:09 | NUR ---
B) PATIENT IS ORIENTED TO SELF ONLY, WITH CONFUSION NOTED. SHE AMBULATES INDEPENDENTLY. LESS ARGUMENTATIVE TODAY AND NO BEHAVIORS NOTED. I} ADMINISTER PRESCRIBED MEDICATIONS. REDIRECT AND REORIENT NEEDED. R) COMPLIANT WITH MEDICATIONS. EASILY REDIRECTS P) CONTINUE PLAN OF CARE.
--- NOTE | 2019-01-28 20:15 | NUR ---
RECEIVED IN DAYROOM. SITTING IN A CHAIR WITH PEERS BY HER SIDE. SOCIALIZING WITH PEERS AT TIMES. CALM AND COOPERATIVE WITH CARE AND ASSESSMENT. NO SIGNS OF AGGRESSION. REDIRECT AND REORIENT NEEDED. CONTINUS TO SIT CALMLY IN DAYROOM. CONTINUE PLAN OF CARE
[2019-01-28 22:56] VITALS: BP 136/52
[2019-01-29 08:00] VITALS: BP 138/74
--- NOTE | 2019-01-29 10:00 | NUR ---
B) PATIENT IS AWAKE AND ALERT TO SELF ONLY, VERY CONFUSED, REPEATS SAME QUESTION FREQUENTLY, AND IS INTRUSIVE WITH PEERS. CALM AND COOPERATIVE WITH CARE AND ASSESSMENT. I) ADMINISTER PRESCRIBED MEDICATIONS AND REORIENT AND REDIRECT OFTEN. R) COMPLIANT WITH MEDICATIONS AND HAS DIFFICULTY WITH REDIRECTION. P) CONTINUE PLAN OF CARE.
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
--- NOTE | 2019-01-29 12:28 | PN ---
PATIENT:HYACINTH GUNDERSON MEDICAL RECORD: [id number] LOCATION:[facility] Aviles ADMISSION DATE: 01/19/19 PROGRESS NOTE DATE OF SERVICE: 01/25/2019 SUBJECTIVE: Ms. Gunderson is an 88-year-old resident of [facility] who was getting increasingly agitated about not being allowed to "go home." She has advanced major neurocognitive disorder and apparently by her son's history based on very assertive personality type, so the patient finds lacking the memory to do so, finds it hard not to be demanding. With gradual increases in clonazepam, she has been less aggressive with staff and other residents. Today on interview, she was more appropriate. She asked me to come sit down. She then started very much a tangential course of why she was a good person and needed to go home and then rambled almost incoherently about episodes in the past. However, when I got up to leave, very upset that would not continue to listen. She slept 8 hours, eating 30%, 45%, and 50%. Last bowel movement on the . Her vital signs are 98.2, 77, 18, 129/63, and 94%. ASSESSMENT: Unchanged. PLAN: Continue current treatment plan, which includes continuing treatment of her UTI and we will hold the clonazepam 0.25 mg t.i.d. as overall nursing states that her behavior is in much better control. We will try to balance out the risk of benzodiazepines in adults over 65 with patient's behavioral agitation. Case discussed with nursing, chart reviewed, and the patient interviewed. TRANSINT:[id number] Voice Confirmation ID: [id number] DOCUMENT ID: [id number] RADHA RODRIGUES MD at 1228 CC: [id number] DICTATION DATE: 01/25/19 1611 MOLDER OFFBEARER: 01/26/19 0052 ADM IN [id number] [place] [address]
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
--- NOTE | 2019-01-29 12:28 | PN ---
PATIENT:HYACINTH GUNDERSON MEDICAL RECORD: [id number] LOCATION:[facility] ADMISSION DATE: 01/19/19 PROGRESS NOTE DATE OF SERVICE: 01/22/2019 SUBJECTIVE: Ms. Gunderson is an 88-year-old female who has been here previously in June for similar symptomatology. Ms. Gunderson has little to no short term memory and continues to insist not only with staff, but other patients as well to the point of agitating them that she has to go she has to go which was very similar, although more intense on this admission. Her Namenda had been increased. She has been treated for UTI; however, this has not seemed to diminish the intensity of her agitation. Son has called and stated that in the past, benzodiazepines have been effective in helping get rid of her acute agitation. On interview, the patient again does not recognize me. She is very insistent that she has to leave today. Her latest vital signs are 98.6, 82, 16, 138/63, and 96%. ASSESSMENT: Unchanged. PLAN: I am going to add clonazepam 0.25 twice a day in order to get the best balance between decreasing agitation and the fall risk and other risk with benzodiazepines. Case discussed with nursing, chart reviewed and patient interviewed. TRANSINT:[id number] Voice Confirmation ID: [id number] DOCUMENT ID: [id number] RADHA RODRIGUES MD at 1228 CC: [id number] DICTATION DATE: 01/22/19 1453 REMOTE ENCODING CENTER MANAGER: 01/23/19 0045 ADM IN [id number] [place] [address]
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
--- NOTE | 2019-01-29 19:51 | NUR ---
USING STERILE TECHNIQUE IN AND OUT CATH PERFORMED AND URINE OBTAINED FOR CULTURE AND SENSITIVITY. PATIENT COOPEATIVE WITH PROCEDURE.
[2019-01-29 20:22] VITALS: BP 144/64
--- NOTE | 2019-01-29 20:44 | NUR ---
RECEIVED IN DINING AREA. WALKING ABOUT. SOCIAL WITH STAFF AND PEERS. NO SIGNS OF HALLUCINATIONS. CALM AND COOPERATIVE WITH CARE AND ASSESSMENT. RESTINGIN BED WITH EYES CLOSED AT THIS TIME. CONTINUE PLAN OF CARE
[2019-01-30 08:00] VITALS: BP 126/76
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
--- NOTE | 2019-01-30 11:48 | NUR ---
Nutrition Follow Up: Regular diet with Ensure TID PO intake: 92% avg for 9 meals BM x 1 today Sig meds: Vit D, Fish oil, Haldol Wt: Gained 5.4 lbs 01/21/2019: 109.4 lbs 01/25/2019: 114.8 lbs Patient has good PO intake. Patient to continue regular diet w/ ensure TID Clinical Dietitian Following
--- NOTE | 2019-01-30 13:00 | NUR ---
B) PATIENT IS AWAKE AND ALERT TO SELF ONLY, WITH CONFUSION NOTED. CALM AND COOPERATIVE WITH CARE AND ASSESSMENT. LESS REPEATATIVE WITH CONVERSATIONS TODAY. I) ADMINISTER PRESCRIBED MEDICATIONS. REDIRECT AND REORIENT NEEDED. R) COMPLIANT WITH MEDICATIONS. CALMER TODAY. P) CONTINUE POC.
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
[2019-01-31 04:19] VITALS: BP 130/70
[2019-01-31 08:25] VITALS: BP 133/69
--- NOTE | 2019-01-31 18:08 | NUR ---
B) PATIENT IS AWAKE AND ORIENTED TO SELF ONLY. CALM AND COOPERATIVE WITH CARE AND ASSESSMENT. SHE IS VERY SLEEPY THIS MORNING. I) ADMINISTERED PRESCRIBED MEDICATIONS. REDIRECT AND REORIENT NEEDED. R) MEICATIONS GIVEN LATE BECAUSE SHE WAS TOO SEDATED. P) CONTINUE PLAN OF CARE.
[2019-01-31 20:19] VITALS: BP 133/50
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
[2019-02-01 08:49] VITALS: BP 131/59
--- NOTE | 2019-02-01 11:47 | NUR ---
PATIENT SOCIALIZING WITH OTHER PEERS AT THIS TIME. NO DISTRESS NOTED. PT ABLE TO MAKE NEEDS KNOWN. AMBULATES WITHOUT ASSISTANCE AND FEEDS SELF. PT HAS POOR INSIGHT TO SITUTION. PT IS CONFUSED AND ORIENTED TO SELF ONLY. REDIRECT OFTEN. PT ASKS QUESTIONS ABOUT LEAVING, HER CAR KEYS AND WHERE IS [place]. NURSE WROTE OUT A NOTE WITH HER QUESTIONS AND ANSWERS ON THE PAPER AND HAVE HER REFER TO THE PAPER. WILL CONT PLAN OF CARE.
--- NOTE | 2019-02-01 13:21 | NUR ---
Team Treatment Review: Diet: Regular Diet, Ensure w/ meals PO intake: 98% avg x 9 meals Wt: (+ 4.8 lbs) 01/20/2019: 110 lbs 01/28/2019: 114.8 lbs BM: x 1 on 01/30 Med: Vit D, Fish Oil Labs: No new labs since 01/20 PO intake good. Continue current diet and ensure w/ meals as tolerated. Clinical Dietitian Following
--- NOTE | 2019-02-01 14:53 | PN ---
PATIENT:HYACINTH BUCKNER MEDICAL RECORD: [id number] LOCATION:[facility] ADMISSION DATE: 01/19/19 PROGRESS NOTE DATE OF SERVICE: 01/31/2019 SUBJECTIVE: The patient's case was discussed with staff. She has no new complaint. OBJECTIVE: The patient is partially oriented. She has been in reasonable behavioral control. She has limited insight about her condition. ASSESSMENT: No change in diagnoses. PLAN: Current medicines have been reviewed and will be maintained. Her long-term prognosis is guarded. TRANSINT:[id number] Voice Confirmation ID: [id number] DOCUMENT ID: [id number] MATTHEW IZQUIERDO MD at 1453 CC: [id number] DICTATION DATE: 01/31/19 1627 SENIOR HOUSEKEEPER: 02/01/19 0022 ADM IN [id number] [place] [address]
[2019-02-01 20:53] VITALS: BP 149/67
--- NOTE | 2019-02-02 03:56 | NUR ---
B) Patient is alert and oriented to self, very confused and always looking for something: [place], car, a ride to [place], family, her house I) Administered scheduled medications as ordered, monitored for safety R) Medication compliant, lost P) Continue plan of care,
--- NOTE | 2019-02-02 14:28 | PN ---
PATIENT:HYACINTH BUCKNER MEDICAL RECORD: [id number] LOCATION:[facility] ADMISSION DATE: 01/19/19 PROGRESS NOTE DATE OF SERVICE: 02/01/2019 SUBJECTIVE: The patient's case was discussed with staff. She has no new complaint. OBJECTIVE: The patient denies intent to harm herself or others. She is significantly impaired cognitively. ASSESSMENT: No change in diagnoses. PLAN: Current medicines have been reviewed and will be maintained. I am, however, going to increase the dose of her Namenda to 10 mg twice daily. Long-term prognosis is guarded. TRANSINT:[id number] Voice Confirmation ID: [id number] DOCUMENT ID: [id number] MATTHEW IZQUIERDO MD at 1428 CC: [id number] DICTATION DATE: 02/01/19 1504 FIELD SERVICE ANALYST: 02/02/19 0026 ADM IN [place] [id number] [place] [id number]
[2019-02-02 14:55] VITALS: BP 149/67
[2019-02-02 20:05] VITALS: BP 128/52
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
[2019-02-03 08:56] VITALS: BP 107/59
[2019-02-03 11:23] VITALS: BP 107/59
--- NOTE | 2019-02-03 12:17 | PN ---
PATIENT:HYACINTH BUCKNER MEDICAL RECORD: [id number] LOCATION:[facility] ADMISSION DATE: 01/19/19 PROGRESS NOTE DATE OF SERVICE: 02/02/2019 SUBJECTIVE: The patient's case was discussed with staff. She has no new complaint. OBJECTIVE: The patient denies intent to harm herself or others. She generally tolerates her medicines well. Eye contact is fair. ASSESSMENT: No change in diagnoses. PLAN: Brief supportive and educational interventions were made. Long-term prognosis is guarded. TRANSINT:[id number] Voice Confirmation ID: [id number] DOCUMENT ID: [id number] MATTHEW IZQUIERDO MD at 1217 CC: [id number] DICTATION DATE: 02/02/19 1451 FERRYBOAT PILOT: 02/02/19 1556 ADM IN [address] [place] [address]
--- NOTE | 2019-02-03 14:49 | NUR ---
PT IS AWAKE AND ALERT TO PERSON ONLY. CALM AND COOPERATIVE WITH ASSESSMENT. MED COMPLIANT. PT CAN BE VERY DEMANDING WITH STAFF AT TIMES. REDIRECT AND REORIENT NEEDED. FALL PRECAUTIONS IN PLACE. PT IS VERY CONFUSED. HAS POOR INSIGHT INTO HER SITUATION. WILL CPOC.
[2019-02-03 20:59] VITALS: BP 140/59
--- NOTE | 2019-02-03 22:42 | NUR ---
PATIENT IS VERY CONFUSED STILL, SHE WANDERS AROUND LOOKING FOR HER CAR KEYS AND TRIES TO OPEN UP THE DOORS. REPEATEDLY ASKS ABOUT GOING HOME. SHE IS ARGUMENTATIVE, COMPLIANT WITH MEDS. WILL FOLLOW POC
[2019-02-04 08:41] VITALS: BP 132/66
--- NOTE | 2019-02-04 10:51 | PN ---
PATIENT:HYACINTH BUCKNER MEDICAL RECORD: [id number] LOCATION:[facility] ADMISSION DATE: 01/19/19 PROGRESS NOTE DATE OF SERVICE: 02/03/2019 SUBJECTIVE: The patient's case was discussed with staff. She has no new complaint. OBJECTIVE: The patient denies intent to harm herself or others. She is tolerating her medicines well. She eating adequately and sleeping adequately. She is easily agitated. Today, she is focused on her purse, and even though she is told that is locked in the safe, she is demanding to go see it. ASSESSMENT: Dementia. PLAN: Current medicines have been reviewed and will be maintained. Long-term prognosis is guarded. TRANSINT:[id number] Voice Confirmation ID: [id number] DOCUMENT ID: [id number] MATTHEW IZQUIERDO MD at 1051 CC: [id number] DICTATION DATE: 02/03/19 1227 NIGHTCLUB MANAGER: 02/03/19 1258 ADM IN [address] [id number] [place] [address]
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
--- NOTE | 2019-02-04 16:04 | NUR ---
PATIENT VISITING WITH FAMILY. PRN WAS EFFECTIVE.
--- NOTE | 2019-02-04 20:12 | NUR ---
RECEIVED IN DAYROOM. WALKING ABOUT. VERY CONFUSED. VERBALLY AGGRESSIVE. MAKES THREATS TO STAFF. COOPERASIVE WITH CARE AND ASSESSMENT. RESTING IN BED WITH EYES CLOSED AT THIS TIME. CONTINUE PLAN OF CARE
[2019-02-04 21:33] VITALS: BP 137/56
[2019-02-05 08:00] VITALS: BP 134/67
--- NOTE | 2019-02-05 15:02 | PN ---
PATIENT:HYACINTH BUCKNER MEDICAL RECORD: [id number] LOCATION:[facility] ADMISSION DATE: 01/19/19 PROGRESS NOTE DATE OF SERVICE: 02/04/2019 SUBJECTIVE: The patient's case was discussed with staff. She has no new complaint. OBJECTIVE: The patient denies intent to harm herself or others. She is confused and at times agitated, but she has not required p.r.n. medication. ASSESSMENT: Dementia. PLAN: Brief supportive and educational interventions were made. Long-term prognosis is guarded. TRANSINT:[id number] Voice Confirmation ID: [id number] DOCUMENT ID: [id number] MATTHEW IZQUIERDO MD at 1502 CC: [id number] DICTATION DATE: 02/04/19 1148 MID LEVEL BUSINESS ANALYST: 02/04/19 1549 ADM IN [address] [id number] [place] [address]
--- NOTE | 2019-02-05 16:02 | NUR ---
PT IS AWAKE AND ALERT TO PERSON ONLY. CALM AND COOEPRATIVE WITH ASSESSMENT. PT AMBULATES INDEPENDENTLY. PT IS VERY DEMANING WITH STAFF AND PEERS. PT CAN BECOMER IRRITABLE AND CONFUSED WITH STAFF AND PEERS DURING THE DAY. MED COMPLIANT. REDIRECT AND REORIENT NEEDED. FALL PRECAUTIONS IN PLACE. WILL CPOC.
[2019-02-05] MEDS ORDERED: NAMENDA5 MG PO (16:15)
[2019-02-05] MEDS ORDERED: CARDIZEM60 MG PO (16:15)
[2019-02-05] MEDS ORDERED: KLONOPIN0.5 MG PO (16:16)
--- NOTE | 2019-02-05 16:37 | NUR ---
DANIELLA LEFT VOICEMAIL ON PT'S SON'S PHONE TO ALERT OF DISCHARGE FOR [facility].
[2019-02-05 20:14] VITALS: BP 153/57
--- NOTE | 2019-02-05 22:28 | NUR ---
RECEIVED IN DAYROOM. SOCIALIZING WITH PEERS. CALM AND COOPERATIVE WITH CARE AND ASSESSMENT. NO AGGRESSIVE BEHAVIORS. REDIRECT AND REORIENT NEEDED. RESTING IN BED WTIH EYES CLSOED AT THIS TIME. CONTINUE PLAN OF CARE.
[2019-02-06 07:00] VITALS: BP 163/73
--- NOTE | 2019-02-06 10:58 | NUR ---
REC'D PT IN HALLWAY WITH PEERS. AWAKE AND ALERT TO PERSON ONLY. CALM AND COOPERATIVE WITH ASSESSMENT. MED COMPLIANT. PT CAN BE VERY DEMANDING AT TIMES. REDIRECT AND REORIENT NEEDED. FALL PRECAUTIONS IN PLACE. WILL CPOC.
--- NOTE | 2019-02-06 11:45 | NUR ---
REPORT CALLED TO SVITLANA AT [facility]. ALL DISCHARGE PAPERWORK FAXED AND COPY SENT WITH PT AT TTIME OF DISCHARGE. NO S/SX OF DIDTRESS NOTED AT TIME OF DISCHARGE. PT DENIES ANY PAIN OR DISCOMFORT.
--- NOTE | 2019-02-06 14:49 | PN ---
PATIENT:HYACINTH BUCKNER MEDICAL RECORD: [id number] LOCATION:[facility] ADMISSION DATE: 01/19/19 PROGRESS NOTE DATE OF SERVICE: 02/05/2019 SUBJECTIVE: The patient's case was discussed with staff. She has no new complaint. OBJECTIVE: The patient denies intent to harm herself or others. She is tolerating her medicines well. ASSESSMENT: No change in diagnoses. PLAN: Current medicines have been reviewed and will be maintained. Long-term prognosis is guarded. I anticipate she can be transitioned out of the hospital tomorrow. Her long-term prognosis is guarded. TRANSINT:[id number] Voice Confirmation ID: [id number] DOCUMENT ID: [id number] MATTHEW IZQUIERDO MD at 1449 CC: [id number] DICTATION DATE: 02/05/19 1612 FOOD SERVICES DIRECTOR: 02/06/19 0006 DIS IN 02/06/19 [id number] [place] [address]
--- NOTE | 2019-02-07 12:07 | PN ---
PATIENT:HYACINTH BUCKNER MEDICAL RECORD: [id number] LOCATION:[facility] ADMISSION DATE: 01/19/19 PROGRESS NOTE DATE OF SERVICE: 02/06/2019 SUBJECTIVE: The patient's case was discussed with staff. She has no new complaint. OBJECTIVE: The patient denies intent to harm herself or others. She is tolerating her medicines well. ASSESSMENT: Dementia. PLAN: The patient will be transitioned out of the hospital today. She will be discharged to a fci. She does not have evidence of dangerousness to herself or others that would affect the safety of the fci. She herself requires 15-yicf-r-day supervision, which of course the fci will be providing. TRANSINT:[id number] Voice Confirmation ID: [id number] DOCUMENT ID: [id number] MATTHEW IZQUIERDO MD at 1207 CC: [id number] DICTATION DATE: 02/06/19 1512 FEDERAL DISTRICT LAW CLERK: 02/07/19 0100 DIS IN 02/06/19 [id number] [place] [address]
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
== END 2019-02-06 11:45 | DRG 57 ==
LOC: D.PSYCH 16:46
PROVIDERS: Family Medicine; ADMIT Psychiatry & Neurology Psychiatry; ATTEND Psychiatry & Neurology Psychiatry
DX: G30.9 Alzheimer's disease, unspecified (principal); F02.81 Dementia in other diseases classified elsewhere, unspecified severity, with behavioral disturbance; N39.0 Urinary tract infection, site not specified; I25.10 Atherosclerotic heart disease of native coronary artery without angina pectoris; F41.8 Other specified anxiety disorders; E78.5 Hyperlipidemia, unspecified; Z91.81 History of falling; M81.0 Age-related osteoporosis without current pathological fracture; E55.9 Vitamin D deficiency, unspecified